=== PATIENT | male | born 1960 | race Two or more races ===

== ENCOUNTER 2021-09-01 16:47 | Emergency (ER) | payer SELFPAY ==
[~2021-09-01] VITALS: Ht 177.8 cm; Wt 108.9 kg
[2021-09-01 22:36] VITALS: BP 145/82
== END 2021-09-01 22:42 | disposition home or self-care (01) ==
LOC: ER 17:00
DX: S10.11XA Abrasion of throat, initial encounter (principal); I10 Essential (primary) hypertension; X58.XXXA Exposure to other specified factors, initial encounter; Y93.89 Activity, other specified; Y92.89 Other specified places as the place of occurrence of the external cause; Y99.8 Other external cause status
CPT/HCPCS: 70360; 70490